=== PATIENT | male | born 1945 | race Caucasian/White ===

== ENCOUNTER 2018-06-28 13:54 | Observation (INO) | payer MEDICARE, BC ==
[2018-06-28 14:12] LABS: #Basophils 0.1 thou/uL (0.0-0.2); #Eosinphils 0.1 thou/uL (0.0-0.7); #Lymphocytes 1.4 thou/uL (1.20-3.40); #Monocytes 0.3 thou/uL (0.11-0.59); #Neutrophils 3.2 thou/uL (1.40-6.50); %Basophils 1.1 % (0.0-1.0); Hemoglobin 13.7 g/dL (14.0-18.0); Mean Corpuscular HGB CONC 33.5 g/dL (32.0-36.0); Mean Corpuscular Hemoglobin 34.4 pg (27.0-31.0); Platelet Count 159 thou/uL (130-400); RBC Distribution Width 11.2 % (11.5-14.5); Red Blood Cell (RBC) Count 3.98 mill/uL (4.70-6.10)
[2018-06-28] MEDS ORDERED: ISOVUE-370 76%-LOCM 1 ML ONE (14:13)
[2018-06-28 14:28] LABS: ALT (SGPT) 61 U/L (8-55); AST (SGOT) 69 U/L (5-34); Albumin 4.3 g/dL (3.4-4.8); Alkaline Phosphatase 75 U/L (40-150); Anion Gap 15 mmol/L (10-20); BUN (Urea Nitrogen) 22 mg/dL (8.4-25.7); Bilirubin, Total 1.3 mg/dL (0.2-1.2); CK (CPK) 110 U/L (30-200); Calc. Creatinine Clearance 0 mL/min (70-130); Calcium 9.8 mg/dL (7.8-10.44); Carbon Dioxide 21 mmol/L (23-31); Chloride 109 mmol/L (98-107); Estimated GFR-MDRD 64; Globulin 2.2 g/dL (2.4-3.5); Glucose 126 mg/dL (83-110); Lipase 21 U/L (8-78); Protein, Total 6.5 g/dL (5.8-8.1); Sodium 141 mmol/L (136-145)
--- NOTE | 2018-06-28 14:50 | RAD ---
PORTABLE CHEST: DATE: 06/28/2018. PROVIDED CLINICAL HISTORY: Chest pain and shortness of breath. FINDINGS: Comparison 09/11/2016. Cardiac and mediastinal silhouette is within normal limits. Median sternotomy changes are seen. No focal consolidation, pleural fluid, or pneumothorax apparent. IMPRESSION: No evidence for an acute cardiopulmonary process. POS: [facility]
--- NOTE | 2018-06-28 15:24 | CT ---
CT PULMONARY ANGIOGRAM WITH IV CONTRAST AND 3D MIP RECONSTRUCTIONS: DATE: 06/28/2018. PROVIDED CLINICAL HISTORY: Chest pain. FINDINGS: There is no evidence for central or segmental pulmonary embolus. Vascular calcification is demonstra amber. Postoperative changes of CABG are demonstrated. The heart, pericardium, and great vessels demo nstrate an otherwise unremarkable CT angiographic appearance. Bones are free of significant opacity. There is no evidence for pleural fluid or pneumothorax. The airway appears patent and of normal caliber. There is no evidence for thoracic lymph node enlargemen t. Diffuse fatty infiltration of the liver changes are seen. Visualized portions of the upper abdomen a ppear otherwise unremarkable. The osseous structures demonstrate no concerning osteoblastic or osteo lytic lesions. IMPRESSION: No evidence for central or segmental pulmonary embolus. POS: [facility]
[2018-06-28] MEDS ORDERED: Sodium Chloride 0.9% 1,000 ML IV SCH (16:00)
[2018-06-28] MEDS ORDERED: Ondansetron ODT 4 MG TAB SL PRN (16:00)
[2018-06-28] MEDS ORDERED: Ondansetron PF 4 MG/2 ML Vial IVP PRN (16:00)
[2018-06-28 17:34] LABS: Troponin I Less than 0.010 ng/mL (< 0.028)
[2018-06-28 18:12] VITALS: BMI 29.0
[2018-06-28] MEDS ORDERED: Aspirin 325 MG TAB PO SCH (18:30)
[2018-06-28] MEDS ORDERED: Acetaminophen 325 MG TAB PO PRN (18:48)
[2018-06-28] MEDS ORDERED: Lorazepam 2 MG/ML VIAL SLOW IVP PRN ×2 (19:07→19:13)
[2018-06-28] MEDS ORDERED: Diazepam 10 MG/2 ML SYRINGE IVP SCH (19:15)
[2018-06-28] MEDS ORDERED: Diazepam 5 MG TAB PO SCH ×2 (19:30→23:59)
--- NOTE | 2018-06-28 19:59 | PDOC.EVN ---
Event Note - Event Note Event Note: Patient discussed with JESSICA Perez: 72 y/o male with extensive coronary artery disease and hx of CABG and stent placement followed by Dr. Cantu, HTN, dyslipidemia, BPH, and alcohol abuse who presents to the ER with c/o palpitations. Pt reports for a few weeks waking up at night with palpitations, shortness of breath and tightness around 2 or 3 am. He generally gets up and walks around, The same sx will occur intermittently during the day both at rest and with exertion. Today the sx were different - felt lightheaded and they didnt respond to ntg x 2. \ PMH/PSH/MEDS reviewed Social hx - significant for 750 ml vodka per day. Pt doesnt go a day without alcohol, thinks he may get restless if delayed in consuming alcohol. Denies any hx of withdrawal in the hospital VS: Gen - awake, alert, responsive in NAD HEENT - pupils equal and round Lungs - ctab Heart - nl s1/s2 without audible murmurs Abd - soft, obese, nt, no palpable abnormalities Ext - no pitting edema Neuro - bilateral hand tremor Labs reviewed - elevated lft's, macrocytic anemia, mildly elevated glucose, and hyperchloremic/metabolic acidosis. Trop x 2 neg CXR - neg CT-A neg ECG - sinus tachy, no st changes Imp: 1. Unstable angina in pt with known CAD with hx of CABG and stent placement 2. Alcohol abuse at high risk of withdrawal given the daily consumption amount 3. Macrocytic anemia c/w above 4. Abnormal liver function tests c/w above Plan: 1. monitor on tele, cardiology consult due to significant sx, and echo ordered 2. For alcohol abuse and to lower the risk of alcohol withdrawal - schedule Valium. Start with loading dose of 10 mg and schedule 5 mg q6h, monitor with ASE protocol and use IV ativan prn. Pt may require significant amounts of benzo and/or transfer to ICU for other interventions/management. 3. Start replacement of vitamins including folic acid and magnesium 4. Check alcohol levels now 5. I reviewed my concerns with patient and the approach we are taking for both his heart and potential for alcohol withdrawal. He and his demonstrate understanding and agree. Pt is at significant risk of decompensation due to age , comorbidities and current clinical picture.
[2018-06-28 20:31] LABS: PTT 29.6 SEC (22.9-36.1); Prothrombin Time 13.4 SEC (12.0-14.7)
[2018-06-28] MEDS ORDERED: PROVENTIL INHALER 6.7 G (200 INHALATIONS) INH PRN (20:31)
[2018-06-28] MEDS ORDERED: Nitroglycerin 0.4 MG TAB (25 Tab Bottle) SL PRN (20:31)
[2018-06-28 20:39] LABS: Alcohol Less than 10 mg/dL (Less than 10); Magnesium 1.6 mg/dL (1.6-2.6)
[2018-06-28 20:45] LABS: Troponin I Less than 0.010 ng/mL (< 0.028)
[2018-06-28] MEDS ORDERED: Simvastatin 40 MG TAB PO SCH (21:00)
[2018-06-28] MEDS ORDERED: Famotidine/PF 20 mg/2ml Vial SLOW IVP SCH (21:00)
[2018-06-28] MEDS ORDERED: Tamsulosin HCl 0.4 MG CAP PO SCH (21:00)
[2018-06-28] MEDS ORDERED: Famotidine 20 MG TAB PO SCH (21:00)
[2018-06-28] MEDS ORDERED: Non-Formulary Item 1 EACH (Ezetimibe/Simvastatin [Vytorin] 1 TABLET) PO SCH (21:00)
[2018-06-28] MEDS ORDERED: Ezetimibe 10 MG TAB PO SCH (21:00)
[2018-06-28] MEDS: Carvedilol 6.25 MG TAB PO SCH (21:23)
[2018-06-28] MEDS: Ramipril 5 MG CAP PO SCH (21:23)
--- NOTE | 2018-06-28 22:56 | HP ---
PRIMARY CARE PHYSICIAN: Brian Galloway MD CHIEF COMPLAINT: Chest discomfort and palpitations. HISTORY OF PRESENT ILLNESS: Mr. Flores is a 72-year-old man with a background history of alcohol abuse, hypertension, CAD, and hyperlipidemia. Due to a presyncopal episode at approximately 11:00 a.m. this morning, the patient was standing and suddenly saw black, and felt as if he was going to faint. Denies having any associated nausea, vomiting, or headache at that time. He reports having this sensation of his heart pounding hard in his chest, but denies any chest pain. Over the last 2 to 3 weeks, he describes experiencing moments of chest discomfort and at times palpitations. This seems to be exacerbated by exertion, but it is noticeable at night as well when he is lying down and resting. He denies having any recent cough. Has not had any fevers, chills, or sweats. However, his states he did complain of feeling clammy earlier today. He describes experiencing an episode of burning on the skin of his face, which he states felt like "someone rubbed jalapeno around his face." He states that this briefly passed and occurred while here in the ER. The patient is known to Dr. Cantu. He has had a previous CABG. In October 2014, he underwent a catheterization after being admitted for an NSTEMI. This was done by Dr. Peoples. He underwent PCI to the right coronary artery with a drug-eluting stent to the mid RCA as well as a stent to the proximal RCA. In September 2016, he underwent a stress test, which showed normal myocardial perfusion without evidence of ischemia and normal LVEF calculated at 65%. In the ED, the patient has undergone laboratory studies including troponins, which thus far have been negative. We are waiting the third troponin. He also has undergone imaging including a CT angiogram of the chest, which showed no evidence of central or segmental pulmonary embolus. He had a chest x-ray done, which was also unremarkable. Of note, the patient admits to drinking heavily, approximately 750 mL of vodka daily. He denies any history of withdrawal seizures. REVIEW OF SYSTEMS: The patient denies having any recent fevers. Has not had any recent upper respiratory infections. Has not experienced any headaches. Denies having any nausea or vomiting. Denies any abdominal pain or cramping. Has not experienced any changes with his bowels. He denies any urinary symptoms such as dysuria, hematuria, urgency, or frequency. All other review of systems are negative. ALLERGIES: NO KNOWN DRUG ALLERGIES. CURRENT MEDICATIONS: 1. Vytorin 10/80 mg. 2. Ramipril 10 mg twice daily. 3. Clopidogrel 75 mg p.o. daily. 4. Dexilant 60 mg p.o. Friday, Friday, and Friday. 5. Flomax 0.4 mg p.o. daily. 6. Coreg 6.25 mg p.o. twice daily. PAST MEDICAL HISTORY: 1. Hypertension. 2. Asthma. 3. Hyperlipidemia. 4. Previous NSTEMI. 5. Alcohol abuse. 6. BPH. PAST SURGICAL HISTORY: 1. Bilateral shoulder surgery. 2. Previous CABG x3. 3. Toe joint repair. 4. Hernia repair. 5. Septoplasty. 6. Cardiac stents x2, one to the mid RCA and one to the proximal RCA. SOCIAL HISTORY: The patient admits to excess alcohol intake. He drinks 750 mL of vodka daily. Denies smoking cigarettes, but does dip. He denies any illicit drug use. PHYSICAL EXAMINATION: GENERAL: The patient appears well developed, in no acute distress. VITAL SIGNS: Temperature 98.2, pulse 85, blood pressure 106/74, respirations 18, O2 saturation 95% on room air. HEENT: Normocephalic, atraumatic. Pupils are equal, round, and reactive to light. Sclerae are notable for slight icterus. Oropharynx is clear. NECK: Supple. LUNGS: Clear to auscultation bilaterally without any wheezes, rales, or rhonchi. CARDIAC: Regular rate and rhythm. ABDOMEN: Tense distention with no guarding or rigidity. No renal angle tenderness. Bowel sounds are present. EXTREMITIES: No edema, calf pain, or swelling. NEUROLOGIC: Alert and oriented x3. SKIN: Without rash or jaundice. DIAGNOSTIC STUDIES: EKG done in the ED showed sinus tachy with a heart rate of 115 and premature atrial complexes. LABORATORY DATA: White blood count 5.0, hemoglobin 13.7, hematocrit 40.8, platelets 159. D-dimer 0.70. Sodium 141, potassium 4.0, BUN 22, creatinine 1.12, GFR 64, calcium 9.8, glucose 126, total bilirubin 1.3, AST 69, ALT 61, alkaline phosphatase 75. CK 110, troponin negative x2. Third troponin pending. BNP 73.9. Albumin 4.3. Lipase 21. IMAGING DATA: As mentioned above in HPI. IMPRESSION AND PLAN: Mr. Flores is a 72-year-old man, who is being admitted for management of the following. 1. Chest pain/palpitations. Chest x-ray is negative and CT angiogram without evidence of pulmonary embolism. Two troponins done and negative. The patient will undergo a third troponin. It appears he may be experiencing unstable angina and given his comorbidities and previous cardiac procedures as well as myocardial infarction, he would benefit from Cardiology review. Consult has already been placed to Dr. Cantu, his bindery technician. At present, the patient is pain-free. We will continue his aspirin, Plavix, and statin. 2. Hyperbilirubinemia. It is likely associated with his alcohol excess. On the CT angiogram, he was noted to have diffuse fatty infiltration of the liver. He has tense abdominal distention on exam, but without any tenderness. We will obtain coags. We will obtain a liver ultrasound as well as check his direct bilirubin. We will continue to trend his liver function. 3. Alcohol abuse. JESSIKA protocol has been activated. We will also start diazepam with a loading dose of 10 mg p.o. and continue 5 mg p.o. every 6 hours. We have added Ativan p.r.n. Thiamine, multivitamin, and folic acid are ordered. We will check alcohol level and ammonia level. 4. Gastrointestinal prophylaxis. We will resume home medication. 5. Deep venous thrombosis prophylaxis with mechanical SCDs. 6. Full code status. His surrogate decision maker is his , Ashleigh Flores. They are interested in information regarding advanced directives, therefore consult has been placed to palliative care. 7. The patient's case and plan discussed with Dr. Arango. Job ID: [id number]
[2018-06-29] MEDS: Diazepam 5 MG TAB PO SCH ×3 (00:46→11:10)
[2018-06-29 05:46] LABS: #Eosinphils 0.1 thou/uL (0.0-0.7); #Lymphocytes 1.3 thou/uL (1.20-3.40); #Monocytes 0.4 thou/uL (0.11-0.59); %Eosinophils 2.9 % (0.0-10.0); %Lymphocytes 26.5 % (21.0-51.0); %Monocytes 8.8 % (0.0-10.0); %Neutrophils 60.8 % (42.0-75.0); Mean Corpuscular HGB CONC 31.6 g/dL (32.0-36.0); Mean Corpuscular Hemoglobin 33.1 pg (27.0-31.0); Platelet Count 150 thou/uL (130-400); RBC Distribution Width 11.4 % (11.5-14.5); Red Blood Cell (RBC) Count 3.94 mill/uL (4.70-6.10); White Blood Cell (WBC) Count 4.9 thou/uL (4.8-10.8)
[2018-06-29 05:57] LABS: Anion Gap 12 mmol/L (10-20); BUN (Urea Nitrogen) 25 mg/dL (8.4-25.7); Calc. Creatinine Clearance 110 mL/min (70-130); Calcium 9.4 mg/dL (7.8-10.44); Carbon Dioxide 25 mmol/L (23-31); Cardiac Risk 2.1 (Less than 4.5); Chloride 109 mmol/L (98-107); Cholesterol 160 mg/dl (< 200 Desired); Estimated GFR-MDRD 86; Glucose 102 mg/dL (83-110); HDL Cholesterol 78 mg/dL (>60 Neg Risk); LDL Cholesterol, Calculated 72 mg/dL; Potassium 4.5 mmol/L (3.5-5.1); Sodium 141 mmol/L (136-145); Triglycerides 49 mg/dL (Less than 150)
[2018-06-29] MEDS ORDERED: Mometasone/Formoterol 120 PUFF INHALER INH PRN (06:30)
--- NOTE | 2018-06-29 08:18 | ULT ---
COMPLETE ABDOMEN ULTRASOUND: INDICATIONS: Elevated LFTs with history of alcohol abuse. FINDINGS: There is increased echogenicity of the liver, suspicious for changes of fatty infiltration. The panc reas is largely obscured by overlying bowel gas. The mid to distal abdominal aorta is obscured by ov erlying bowel gas. The proximal abdominal aorta and IVC appear within normal limits. The gallbladder appears within normal limits. No sonographic Gray sign is reported. The common bi le duct measures approximately 4 mm but was not well seen. The spleen measures 9.6 cm. The right ki dney measures 13.2 cm, and the left measures 13.1 cm. There is a 3.6 cm cyst involving the inferior pole of the left kidney. No free fluid is evident. IMPRESSION: 1. Prominent fatty infiltration of the liver. 2. Left renal cyst. 3. Some limitation of exam, as above. POS: [facility]
[2018-06-29] MEDS: Carvedilol 6.25 MG TAB PO SCH (08:44)
[2018-06-29] MEDS: Ramipril 5 MG CAP PO SCH (08:44)
[2018-06-29] MEDS ORDERED: Multivitamin W/ Minerals 1 TAB PO SCH (09:00)
[2018-06-29] MEDS ORDERED: Clopidogrel Bisulfate 75 MG TAB PO SCH (09:00)
[2018-06-29] MEDS ORDERED: Folic Acid 1 MG TAB PO SCH (09:00)
[2018-06-29] MEDS ORDERED: Thiamine 100 MG TAB PO SCH (09:00)
[2018-06-29] MEDS ORDERED: Magnesium Oxide 400 MG TAB PO SCH (09:00)
[2018-06-29 11:34] VITALS: TEMP 97.7
[2018-06-29] MEDS ORDERED: Carvedilol 6.25 MG TAB PO SCH ×2 (11:45→21:00)
[2018-06-29 11:52] VITALS: BP 131/86
--- NOTE | 2018-06-29 13:21 | CON ---
DATE OF CONSULTATION: HISTORY OF PRESENT ILLNESS: The patient is a 72-year-old gentleman, who presents with recurrent palpitations and chest discomfort. The patient has a long history of coronary artery disease. He is status post coronary artery bypass surgery in 2002.He had a COWART placed to the LAD, radial graft to the first diagonal and a graft to the right coronary artery. The patient in 2014 suffered a non-Q-wave myocardial infarction. He underwent a cardiac catheterization,and was found to have an occluded right coronary artery graft. He underwent PTCA and stent placement to the [place] right coronary artery. He presented with atypical chest pain in September of 2006. He underwent a Cardiolite stress test revealed him to have normal left ventricular ejection fraction of 65% with no evidence of ischemia. The patient presents once again with recurrent palpitations and chest discomfort. He reports that he notices that he develops midsternal discomfort that can last up to an hour. This occurs with and without exertion. The patient came to the emergency room with severe discomfort and palpitations. He states that this can last up to an hour. PAST MEDICAL HISTORY: 1. Coronary artery disease. 2. Hypertension. 3. Dyslipidemia. 4. Ethanol abuse. PAST SURGICAL HISTORY: Coronary artery bypass surgery, shoulder surgery,hernia surgery, and toe surgery. SOCIAL HISTORY: He has a long history of alcohol abuse. Nonsmoker. MEDICATIONS ON ADMISSION: 1. Coreg 6.25 b.i.d. 2. Flomax 0.4 daily. 3. Plavix 75 daily. 4. Ramipril 10 daily. 5. Vytorin 10/80 daily. REVIEW OF SYSTEMS: Ten-point system otherwise unremarkable. PHYSICAL EXAMINATION: GENERAL: He is an obese gentleman, in no acute distress. VITAL SIGNS: Blood pressure 147/90. NECK: No jugular distention. LUNGS: Clear to auscultation. HEART: Regular rate and rhythm. Normal S1 and S2. ABDOMEN: Nondistended. EXTREMITIES: Showed no edema. VASCULAR: Radial pulses are 2+. LABORATORY DATA: Sodium 141, potassium 4.5, chloride 109, bicarbonate 25, BUN 25, creatinine 0.87, glucose was 102. Troponin was less than 0.01. White blood cell count was 4.9, hemoglobin 13.0, hematocrit 41.2, platelet 150. His BNP 73. He underwent a chest CT, which revealed him to have no evidence of pulmonary embolus. IMPRESSION: 1. Chest pain, possibly due to ischemic heart disease. 2. History of coronary artery bypass surgery. 3. History of percutaneous transluminal coronary angioplasty and stent placement. 4. Hypertension. 5. Dyslipidemia. 6. Ethanol abuse. This gentleman presented with chest discomfort and palpitations. His cardiac enzymes revealed no evidence of myocardial infarction. His electrocardiogram with chest pain showed no evidence of ischemia. I discussed the option of repeat stress testing versus cardiac catheterization. The patient declines to undergo further evaluation. He states that he would prefer that he wants to continue on medical therapy. I would recommend increasing the dose of his Coreg. We will schedule outpatient stress to make sure there is no evidence of progressive ischemic heart disease. The patient has been advised to return to the emergency room if he has further symptoms. Job ID: [id number] [facility] HEALTHStephenie
--- NOTE | 2018-06-29 23:25 | DIS ---
DATE OF ADMISSION: 06/28/2018 DATE OF DISCHARGE: 06/29/2018 ALLERGIES: NO KNOWN DRUG ALLERGIES. CHIEF COMPLAINT: Chest discomfort, palpitations, and near syncope. FINAL DIAGNOSES: 1. Chest pain, acute coronary syndrome ruled out, the patient refusing option of inpatient stress test versus inpatient catheterization offered by Dr. Cantu. 2. Alcohol abuse. 3. Elevated LFTs and bilirubin secondary to above. 4. History of coronary artery disease, status post bypass surgery, status post stents to the right coronary artery in 2014. 5. Fatty liver per liver ultrasound. 6. Hypertension. 7. Dyslipidemia. PROCEDURES PERFORMED: None. LABORATORY RESULTS: White blood cell count 4.9, hemoglobin 13, hematocrit 41.2, MCV 105, and platelet count 150. PT 13.4, INR 1.0, and APTT 29.6. Sodium 141, potassium 4.5, chloride 109, carbon dioxide 25, anion gap 12, BUN 25, creatinine 0.87, GFR 86, glucose 102, and calcium 9.4. Total bilirubin 1.3, direct bilirubin 0.4, AST 69, ALT 61, alkaline phosphatase 75. Troponin negative x3. Triglycerides 49, cholesterol 160, LDL 72. HDL 78. TSH 1.1125. IMAGING RESULTS: 1. Chest x-ray, no evidence for an acute cardiopulmonary process. 2. Chest and thorax CTA, no evidence for central or segmental pulmonary embolism. 3. Abdominal ultrasound showed prominent fatty infiltration of the liver, left renal cyst. No sonographic Gray sign reported. CONSULTATION: Dr. Cantu of Cardiology. HOSPITAL COURSE: The patient is a 72-year-old male with past medical history significant for alcohol abuse with a current 750 mL consumption of vodka per day; known coronary artery disease, status post bypass, status post stents to the RCA in 2014; hypertension, and hyperlipidemia, who presented to the hospital with complaints of a presyncopal episode that occurred around 11:00 a.m. yesterday morning. The patient felt as if he saw black and felt as if he was going to faint, but denies any keyonna syncope, nausea, vomiting, or headache. He reported that time having a sensation of pounding in his chest, but denied any chest pain at that time. The patient has reported a 2 to 3-week history of chest discomfort along with palpitations, which seems to be exacerbated by exertion. He has noticed this sensation while lying down at rest as well. On arrival, the patient's EKG was stable and showed no dynamic ST or T-wave changes. History of serial troponin has been negative x3. Imaging results as above, CTA showed no evidence of pulmonary embolism. He was treated for alcohol withdrawal prophylactically with benzodiazepines; however, the patient had no signs of acute alcohol withdrawal symptoms or DTs. He was seen in consultation with Dr. Cantu, who did offer him both inpatient stress test versus inpatient left heart catheterization, both of which the patient declined. At the time of my interview, the patient states that he has no chest pain. No shortness of breath. He denies any nausea or vomiting. Per Dr. Cantu, he will be set up for an outpatient nuclear stress test at their office. PHYSICAL EXAMINATION: VITAL SIGNS: Blood pressure 131/86, temperature is 97.7, pulse is 63, and O2 saturation is 96% on room air. GENERAL: Awake, alert, and oriented, in no acute distress. HEENT: Atraumatic, normocephalic. Eye movement intact. NECK: Supple. No lymphadenopathy. No carotid bruits. No JVD. RESPIRATORY: Regular respiratory rate and pattern, overall clear to auscultation bilaterally. No rhonchi or wheezes noted. CV: S1, S2. Regular rate and rhythm. No appreciable murmurs, rubs, or gallops. GI: Soft, nontender, normal bowel sounds. PERIPHERAL VASCULAR: No lower extremity pitting edema, +2 DP pulses bilaterally. MUSCULOSKELETAL: No joint effusion or swelling. NEUROLOGIC: Awake, alert, and oriented x3. Cranial nerves 2 through 12 grossly intact. No focal deficits. SKIN: Normal and dry. No skin discoloration. CONDITION AT DISCHARGE: Stable. DISCHARGE MEDICATIONS: 1. Dexilant 60 mg capsule one p.o. as directed. 2. Zetia/simvastatin 10/80 mg tablet one tablet p.o. at bedtime. 3. Advair 1 inhalation b.i.d. p.r.n. 4. Ibuprofen 200 mg capsule 2 to 4 tablets p.o. p.r.n. pain. 5. Nitroglycerin 0.4 mg tablet one tablet sublingual q.5 minutes p.r.n. chest pain. 6. Ramipril 10 mg capsule one tablet p.o. b.i.d. 7. Tamsulosin 0.4 mg capsule one p.o. at bedtime. 8. Clopidogrel 75 mg tablet one tablet p.o. daily. 9. Please note that the patient's carvedilol was increased from 6.25 to 12.5 mg p.o. b.i.d. per Dr. Cantu for intermittent tachycardia. New discharge medication will be Valium 5 mg tablet one tablet p.o. q.6 hours p.r.n. DISCHARGE DISPOSITION: Home. PLAN: As mentioned, the patient has been scheduled for an outpatient nuclear stress test. He will continue his home medications. I have counseled him extensively on the health repercussions associated with alcoholism. The patient at this time has no interest in counseling or rehab. He will be discharged home. All care has been discussed with himself and his . All questions were answered according to the patient's satisfaction. The case was discussed with Dr. Thacker, who agrees with discharge planning as above. Job ID: [id number]
--- NOTE | 2018-07-04 20:38 | EKG ---
Test Reason : Blood Pressure : / mmHG Vent. Rate : 115 BPM Atrial Rate : 115 BPM P-R Int : 158 ms QRS Dur : 082 ms QT Int : 330 ms P-R-T Axes : 027 -20 055 degrees QTc Int : 456 ms Sinus tachycardia with Premature atrial complexes Minimal voltage criteria for LVH, may be normal variant Nonspecific ST abnormality Abnormal ECG Confirmed by ETHEL GALINDO, MARCIA ([id number]), electronic news gathering editor JEN BROCK ([id number]) on 07/04/2018 8:37:47 PM Referred By: Confirmed By:MARCIA DAVENPORT MD
== END 2018-06-29 13:35 | disposition home or self-care (01) ==
LOC: ERS 13:54 → 2SW 18:01
PROVIDERS: ADMIT Internal Medicine; ATTEND Internal Medicine
DX: R07.89 Other chest pain (principal); R55 Syncope and collapse; F10.10 Alcohol abuse, uncomplicated; I25.10 Atherosclerotic heart disease of native coronary artery without angina pectoris; K76.0 Fatty (change of) liver, not elsewhere classified; I10 Essential (primary) hypertension; E78.5 Hyperlipidemia, unspecified; I25.2 Old myocardial infarction; N40.0 Benign prostatic hyperplasia without lower urinary tract symptoms; J45.909 Unspecified asthma, uncomplicated; F17.290 Nicotine dependence, other tobacco product, uncomplicated; Z79.02 Long term (current) use of antithrombotics/antiplatelets; Z79.899 Other long term (current) drug therapy; Z95.1 Presence of aortocoronary bypass graft; Z95.5 Presence of coronary angioplasty implant and graft
CPT/HCPCS: 71045; 71275; 76700; 80048; 80061; 80307; 82140; 82248; 82550; 83690; 83735; 83880; 84484 ×2; 85025; 85379; 85610; 85730; 93005; 93306; 96365; 99285; G0378 ×2; 36415; 80053; 84443; J3475; J7050; Q9966

== ENCOUNTER 2018-08-08 15:08 | Observation (INO) | payer MEDICARE, BC ==
[2018-08-08 16:04] LABS: #Eosinphils 0.1 thou/uL (0.0-0.7); #Lymphocytes 0.8 thou/uL (1.20-3.40); #Monocytes 0.4 thou/uL (0.11-0.59); #Neutrophils 7.5 thou/uL (1.40-6.50); %Basophils 0.2 % (0.0-1.0); %Eosinophils 0.9 % (0.0-10.0); %Lymphocytes 9.4 % (21.0-51.0); %Monocytes 4.8 % (0.0-10.0); %Neutrophils 84.7 % (42.0-75.0); Hemoglobin 12.6 g/dL (14.0-18.0); Mean Corpuscular HGB CONC 33.1 g/dL (32.0-36.0); Mean Corpuscular Hemoglobin 33.9 pg (27.0-31.0); Mean Platelet Volume 7.9 fL (7.4-10.4); Platelet Count 159 thou/uL (130-400); RBC Distribution Width 12.1 % (11.5-14.5); Red Blood Cell (RBC) Count 3.73 mill/uL (4.70-6.10); White Blood Cell (WBC) Count 8.9 thou/uL (4.8-10.8)
--- NOTE | 2018-08-08 16:16 | RAD ---
AP view chest. HISTORY: Chest pain. AP view chest obtained on 08/08/2018. Comparison made to previous exam from 06/28/2018 AP view chest demonstrates sternotomy wires seen. The lungs are well aerated. No evidence of active i ntrathoracic disease noted. No evidence of effusions, pneumonia or pneumothorax seen IMPRESSION: unremarkable AP view chest.
[2018-08-08 16:25] LABS: ALT (SGPT) 57 U/L (8-55); AST (SGOT) 91 U/L (5-34); Albumin 4.3 g/dL (3.4-4.8); Alkaline Phosphatase 87 U/L (40-150); Anion Gap 16 mmol/L (10-20); BUN (Urea Nitrogen) 19 mg/dL (8.4-25.7); Bilirubin, Total 1.2 mg/dL (0.2-1.2); CK (CPK) 120 U/L (30-200); Calc. Creatinine Clearance 0 mL/min (70-130); Calcium 8.9 mg/dL (7.8-10.44); Carbon Dioxide 23 mmol/L (23-31); Chloride 109 mmol/L (98-107); Estimated GFR-MDRD 63; Globulin 2.1 g/dL (2.4-3.5); Glucose 131 mg/dL (83-110); Lipase 16 U/L (8-78); Potassium 3.6 mmol/L (3.5-5.1); Protein, Total 6.4 g/dL (5.8-8.1); Sodium 144 mmol/L (136-145)
[2018-08-08] MEDS ORDERED: Aspirin Chewable 81 MG TAB ONE (16:37)
[2018-08-08] MEDS ORDERED: Acetaminophen 325 MG TAB PO PRN (18:35)
[2018-08-08 19:13] VITALS: BMI 29.7
[2018-08-08 21:11] LABS: Cardiac Risk 2.1 (Less than 4.5)
[2018-08-08] MEDS ORDERED: Ondansetron ODT 4 MG TAB PO PRN (21:52)
[2018-08-08] MEDS ORDERED: Ondansetron PF 4 MG/2 ML Vial IVP PRN (21:52)
[2018-08-08] MEDS ORDERED: Diazepam 5 MG TAB PO SCH (22:00)
[2018-08-08] MEDS ORDERED: Carvedilol 6.25 MG TAB PO SCH (22:00)
[2018-08-08] MEDS ORDERED: Tamsulosin HCl 0.4 MG CAP PO SCH (22:00)
[2018-08-08] MEDS ORDERED: Ramipril 5 MG CAP PO SCH (22:00)
[2018-08-09 05:36] LABS: #Eosinphils 0.1 thou/uL (0.0-0.7); #Lymphocytes 1.2 thou/uL (1.20-3.40); #Monocytes 0.5 thou/uL (0.11-0.59); #Neutrophils 4.7 thou/uL (1.40-6.50); %Basophils 0.4 % (0.0-1.0); %Lymphocytes 17.7 % (21.0-51.0); %Monocytes 8.2 % (0.0-10.0); %Neutrophils 71.7 % (42.0-75.0); Hemoglobin 12.4 g/dL (14.0-18.0); Mean Corpuscular HGB CONC 33.9 g/dL (32.0-36.0); Mean Platelet Volume 8.4 fL (7.4-10.4); Platelet Count 147 thou/uL (130-400); RBC Distribution Width 12.3 % (11.5-14.5); Red Blood Cell (RBC) Count 3.55 mill/uL (4.70-6.10); White Blood Cell (WBC) Count 6.6 thou/uL (4.8-10.8)
[2018-08-09] MEDS: PROVENTIL INHALER 6.7 G (200 INHALATIONS) INH PRN ×2 (05:37→22:55)
--- NOTE | 2018-08-09 05:43 | HP ---
CHIEF COMPLAINT: Chest pain. HISTORY OF PRESENT ILLNESS: Mr. Flores is a 73-year-old man presenting with complaints of central chest pressure. The patient states it lasted approximately an hour and a half, and started sometime in the afternoon and resolved on its own. He has had no recurrent chest pain ever since. He denies any associated nausea or vomiting. Denies any diaphoresis. He states he has felt back to his normal self with no further complaints. 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 Cantu. The patient reports having 2-3 loose stools per day. No blood in the stools and states it is not watery. No associated abdominal pain or cramping. The patient known to have history of coronary artery disease and previously recommended catheterization, however, the patient had declined. He last underwent an echo on June 28, 2018, and was noted to have an EF of 50% to 55% with impaired relaxation compatible with diastolic dysfunction. Aortic valve leaflets were somewhat thickened. Mild aortic regurgitation noted as well as mild mitral regurgitation and mild tricuspid regurgitation. Of note, the patient also known to have a history of alcohol excess. He drinks approximately 750 mL bottle of liquor daily. Denies any history of alcohol withdrawal seizures, but does have tremors at baseline even when he drinks. REVIEW OF SYSTEMS: All other review of systems apart from those mentioned above in HPI are negative. The patient denies having any shortness of breath, cough, or hemoptysis. No lower leg swelling or calf tenderness. No abdominal pain. PAST MEDICAL HISTORY: 1. Hypertension. 2. Asthma. 3. Hyperlipidemia. 4. Previous NSTEMI. 5. Alcohol abuse. 6. BPH. 7. Heart failure. PAST SURGICAL HISTORY: 1. Bilateral shoulder surgery. 2. Previous CABG x3. 3. Toe joint repair. 4. Hernia repair. 5. Septoplasty. 6. Cardiac stents x2. SOCIAL HISTORY: The patient drinks 750 mL of vodka daily. No tobacco use and no illicit drug use. PHYSICAL EXAMINATION: GENERAL: The patient appears well developed, well nourished, is in no acute distress. VITAL SIGNS: Temperature 98.3, pulse 82, respirations 21, O2 saturation 95% on room air, blood pressure 151/85. HEENT: Normocephalic and atraumatic. Pupils are equal, round, and reactive to light. No nystagmus. Sclerae without icterus. Oropharynx is clear. NECK: Supple without lymphadenopathy. LUNGS: Clear to auscultation bilaterally without wheezes, rales, or rhonchi. CARDIAC: Regular rate and rhythm. No chest wall tenderness. ABDOMEN: Obese, distended, but not firm, remains soft. No tenderness. No guarding or rigidity. No renal angle tenderness. EXTREMITIES: No lower leg edema or swelling. NEUROLOGIC: Alert and oriented x3. He does have a bit of a tremor. SKIN: He is flushed in the face and states this is chronic. Skin is warm and dry. LABORATORY DATA: White blood count 8.9, hemoglobin 12.6, hematocrit 38.2, platelets 159. Sodium 144, potassium 3.6, chloride 109, carbon dioxide 23, anion gap 16, BUN 19, creatinine 1.13, GFR 63, glucose 131, calcium 8.9. Total bilirubin 1.2, AST 91, ALT 57, alkaline phosphatase 87. CK 120. Troponin negative x2. BNP 57.7. Albumin 4.3, globulin 2.1. IMAGING DATA: Chest x-ray, 08/08/2018. Unremarkable. IMPRESSION AND PLAN: Mr. Flores is a 73-year-old man with; 1. Known history of coronary artery disease as well as alcohol excess. He presents due to an episode of chest pain described as pressure, which he is unable to quantify in terms of severity, lasting approximately an hour and a half. The patient states it resolved on its own and has had no recurrent pain since then. No associated shortness of breath, dizziness, lightheadedness, nausea, or vomiting. The patient was previously advised a catheterization, which apparently he declined. He last underwent catheterization in October 2014, at which time, he had severe 2-vessel coronary artery disease. He had presented in June 2018, with chest pain and at that time, Dr. Cantu had advised repeat stress testing versus cardiac catheterization, and he declined both. Cardiology consult has been placed. So far, troponins remain negative x2. Awaiting third troponin. Chest x-ray unremarkable. We will continue to monitor. 2. Alcohol excess. Initiate JESSIKA protocol. Diazepam 10 mg p.o. x1 given. 3. Hypertension. We will resume home medications and monitor blood pressure. 4. Gastrointestinal prophylaxis. 5. Deep venous thrombosis prophylaxis with mechanical SCDs. 6. Full code status. His surrogate decision maker is his , Ashleigh Flores. The patient's case to be discussed with attending for further recommendations. Job ID: [id number]
[2018-08-09 05:53] LABS: Anion Gap 14 mmol/L (10-20); BUN (Urea Nitrogen) 18 mg/dL (8.4-25.7); Calc. Creatinine Clearance 128 mL/min (70-130); Calcium 8.7 mg/dL (7.8-10.44); Carbon Dioxide 22 mmol/L (23-31); Chloride 112 mmol/L (98-107); Estimated GFR-MDRD Greater than 90; Glucose 97 mg/dL (83-110); Potassium 3.6 mmol/L (3.5-5.1); Sodium 144 mmol/L (136-145)
[2018-08-09] MEDS: Aspirin 325 MG TAB PO SCH (08:58)
[2018-08-09] MEDS: Diazepam 5 MG TAB PO PRN ×2 (08:58→21:32)
[2018-08-09] MEDS: Ramipril 5 MG CAP PO SCH ×2 (08:59→20:53)
[2018-08-09] MEDS: Clopidogrel Bisulfate 75 MG TAB PO SCH (08:59)
[2018-08-09] MEDS: Carvedilol 6.25 MG TAB PO SCH ×2 (08:59→20:55)
[2018-08-09] MEDS: Famotidine 20 MG TAB PO SCH ×2 (09:00→20:56)
[2018-08-09] MEDS ORDERED: Famotidine/PF 20 mg/2ml Vial SLOW IVP SCH (09:00)
[2018-08-09] MEDS ORDERED: Communication Order-Pharmacy FS SCH (10:00)
--- NOTE | 2018-08-09 11:37 | PDOC.PN ---
- Subjective Encounter Start Date: 08/09/18 Encounter Start Time: 10:50 Subjective: no current chest pain or sob or palp - Objective Resuscitation Status - Order Detail: 08/08/18 21:52 Resuscitation Status Routine Co-Sign Provider: Resuscitation Status: FULL: Full Resuscitation MAR Reviewed: Yes Vital Signs & Weight: Vital Signs (12 hours) Temp Pulse Resp BP BP Pulse Ox 08/09/18 08:59 145/91 H 08/09/18 07:55 97.9 F 69 16 145/91 H 94 L 08/09/18 05:37 71 18 95 08/09/18 02:59 98.3 F 78 22 H 151/86 H 96 08/09/18 02:58 151/86 H Weight Weight 231 lb 1.6 oz I&O: 08/08/18 08/09/18 08/10/18 06:59 06:59 06:59 Intake Total 600 Balance 600 Result Diagrams: 08/09/18 04:44 08/09/18 04:44 Additional Labs: Accuchecks 08/08/18 20:39 POC Glucose 111 H Phys Exam - Physical Examination HEENT: PERRLA, moist MMs Neck: no JVD, supple Respiratory: no wheezing, no rales Cardiovascular: RRR, no significant murmur Gastrointestinal: soft, non-tender, positive bowel sounds Musculoskeletal: no edema, pulses present Neurological: non-focal, moves all 4 limbs Psychiatric: normal affect, A&O x 3 Dx/Plan (1) Chest pain Code(s): R07.9 - CHEST PAIN, UNSPECIFIED Status: Acute Qualifiers: Chest pain type: unspecified Qualified Code(s): R07.9 - Chest pain, unspecified (2) CAD (coronary artery disease) Code(s): I25.10 - ATHSCL HEART DISEASE OF [place] CORONARY ARTERY W/O ANG PCTRS Status: Chronic Qualifiers: Coronary Disease-Associated Artery/Lesion type: bypass graft [place] vs. transplanted heart: [place] heart Associated angina: with stable angina Qualified Code(s): I25.708 - Atherosclerosis of coronary artery bypass graft(s) , unspecified, with other forms of angina pectoris (3) HTN (hypertension) Code(s): I10 - ESSENTIAL (PRIMARY) HYPERTENSION Status: Chronic Qualifiers: Hypertension type: essential hypertension Qualified Code(s): I10 - Essential (primary) hypertension (4) Dyslipidemia Code(s): E78.5 - HYPERLIPIDEMIA, UNSPECIFIED Status: Chronic (5) Alcohol abuse Code(s): F10.10 - ALCOHOL ABUSE, UNCOMPLICATED Status: Chronic (6) BPH (benign prostatic hyperplasia) Code(s): N40.0 - BENIGN PROSTATIC HYPERPLASIA WITHOUT LOWER URINRY TRACT SYMP Status: Chronic Qualifiers: Lower urinary tract symptom presence: unspecified whether lower urinary tract symptoms present Qualified Code(s): N40.0 - Benign prostatic hyperplasia without lower urinary tract symptoms - Plan for cardiac cath in am -: continue asp, plavix, coreg, ramipril and flomax -: librium prn for alcohol withdrawal -: trop x3 -ve, ldl is 62 -: has elevated lft's sec to alcohol use with ast>alt * . Review of Systems - Medications/Allergies Allergies/Adverse Reactions: Allergies Allergy/AdvReac Type Severity Reaction Status Date / Time No Known Allergies Allergy Verified 08/08/18 19:56 Medications: Current Medications Albuterol Sulfate (Proventil Hfa) 2 puff INH Q4H PRN PRN Reason: SOB &/or Wheezing Last Admin: 08/09/18 05:37 Dose: 2 puff Aspirin (Aspirin) 325 mg PO DAILY [facility] Stop: 08/14/18 21:00 Last Admin: 08/09/18 08:58 Dose: 325 mg Carvedilol (Coreg) 12.5 mg PO BID [facility] Last Admin: 08/09/18 08:59 Dose: 12.5 mg Clopidogrel Bisulfate (Plavix) 75 mg PO DAILY [facility] Last Admin: 08/09/18 08:59 Dose: 75 mg Diazepam (Valium) 5 mg PO Q6H PRN PRN Reason: Anxiety Last Admin: 08/09/18 08:58 Dose: 5 mg Famotidine (Pepcid) 20 mg PO BID [facility] Last Admin: 08/09/18 09:00 Dose: 20 mg Miscellaneous Information (Communication Order-Pharmacy) 0 each FS ONE [facility] Stop: 08/10/18 21:00 Ondansetron HCl (Zofran Odt) 4 mg PO Q6H PRN PRN Reason: Nausea/Vomiting Ondansetron HCl (Zofran) 4 mg IVP Q6H PRN PRN Reason: Nausea/Vomiting Ramipril (Altace) 10 mg PO BID [facility] Last Admin: 08/09/18 08:59 Dose: 10 mg Sodium Chloride (Flush - Normal Saline) 10 ml IVF Q12HR BULL Sodium Chloride (Flush - Normal Saline) 10 ml IVF PRN PRN PRN Reason: Saline Flush Tamsulosin HCl (Flomax) 0.4 mg PO HS BULL
--- NOTE | 2018-08-09 16:43 | CON ---
DATE OF CONSULTATION: 08/09/2018 INDICATION FOR CONSULTATION: A 73-year-old patient with a history of known coronary artery disease, status post bypass surgery, status post angioplasty and stent placement to the right coronary artery in 2015. Bypass surgery was in 2003. He presents with chest pain, nausea, diaphoresis, and diarrhea. He was admitted. Enzymes are negative. We were asked to see him due to the chest discomfort and history of coronary artery disease. HISTORY OF PRESENT ILLNESS: This is a very pleasant 73-year-old gentleman, who has a history of coronary artery disease, underwent bypass surgery in 2003 with 3-vessel CABG with COWART to the left anterior descending artery, saphenous vein graft to diagonal branch and saphenous vein graft to the right coronary artery. He presented again with a non-ST segment elevation myocardial infarction in 2014 and underwent angioplasty and stent placement to the [place] right coronary artery. The saphenous vein graft had occluded. This is in 2014. At the time of the cardiac catheterization of the left anterior descending artery, the [place] vessels are 100% occluded. The right coronary artery had a 60% occlusion proximally and 50% mid stenosis. The pack of the saphenous vein graft was patent to the diagonal branch and also this appears to be a radial branch and also very patent saphenous vein graft to the left anterior descending artery with a COWART. The left circumflex has not been involved and as far as I can tell, has not had any significant stenosis or disease, has not been intervened upon. He did quite well after the stent placement. He had stent placement by Dr. Peopels. He had a 3.0 x 32 mm stent placed in the mid right coronary artery and a 3.5 x 16 mm stent placed in the proximal right coronary artery with good results. He had been doing quite well. He was seen in the office recently for followup and underwent a myocardial perfusion study, which showed no evidence of ischemia. This was performed in July of this year. His ejection fraction was 62%. He also had a recent echocardiogram, which showed a normal ejection fraction estimated at 50% to 55% by echocardiogram. This was performed in June of this year. He had the aortic valve leaflets were somewhat thickened, but had mild aortic, mitral, and tricuspid valve regurgitation. He also was noted to have some diastolic dysfunction. Otherwise, he has been doing relatively well. He was out in his [place] in [place] yesterday when he noticed he started to get some chest discomfort. He became diaphoretic. He had been having some problems with diarrhea and then decided to come back to [place]. On the way back in, he was feeling well, but then decided since he was not knowing when he might have further diarrhea or chest discomfort, he presented to the emergency room and was admitted to the hospital for further evaluation. Fortunately, his cardiac enzymes have remained negative. During our discussion, he did tell me that he has been having problems with constipation and diarrhea for quite some time. He has been on Dexilant. He takes this only 2 to 3 times a week. He did notice that he had a monitor placed about four weeks ago from the office and it was noted he was having some intermittent atrial fibrillation. He was then started on Multaq. He noticed that the diarrhea became worse after starting the Multaq and he stopped taking the medication about 2 days ago. He takes the Dexilant only on a p.r.n. basis 2 or 3 times a week for gastroesophageal reflux. He also stated that he has been having some blood in his stools, which is not an unusual finding and he has also has a history of diverticulosis and this is either he may be having some bleeding from the diverticulosis or diverticulitis. If he has flare ups or this may be from hemorrhoids due to his constipation. He says that most of the time he does notice blood in the stools and in the water recently, even if he is not having constipation with diarrhea. He continues to have this and he may be having some diverticulitis. He has not had a recent colonoscopy performed. He did take nitroglycerin, but did not have any resolution of the discomfort. PAST MEDICAL HISTORY: Significant for coronary artery disease, hypertension, dyslipidemia, and a history of COPD. He has smoked in the past, but stopped about 40 years ago. He has had surgical procedures and bypass surgery. He has also had angioplasty and stent placement as noted above to the right coronary artery. He has had rotator cuff surgery repair. FAMILY HISTORY: Positive for coronary artery disease. His father had coronary artery disease. ALLERGIES: NONE. MEDICATIONS: His medications prior to admission included; 1. Vitamin B complex tablets. 2. Flomax 0.4 mg daily. 3. He takes docusate sodium 100 mg two times a day as needed. 4. Plavix 75 mg a day. 5. Coreg 12.5 mg b.i.d. 6. Advil 200 mg q.6 hours p.r.n. as needed. 7. Dexilant on a p.r.n. basis 60 mg b.i.d. 8. Ramipril 10 mg b.i.d. 9. Nitroglycerin as needed. 10. Vytorin 10/80 q.p.m. 11. Valium 5 mg as needed once or twice a day. 12. He also was started on Multaq 400 mg b.i.d., but he has stopped taking this medication. REVIEW OF SYSTEMS: A 12-point review of systems is unremarkable except what was noted in the history of present illness with the blood in the stools as well as the chest discomfort and the episode that happened yesterday. Otherwise, he does have some COPD and shortness of breath. He denied any significant neurological or peripheral vascular problems. PHYSICAL EXAMINATION: GENERAL: Reveals a well-developed, well-nourished gentleman, who is in no acute distress at this time. He is alert and oriented, very pleasant. is at bedside. VITAL SIGNS: Show a blood pressure of 145/91, heart rate is 70 and regular, and respiratory rate. He is afebrile. HEENT: Shows the head to be normocephalic and atraumatic. Carotid pulses are present. There were no bruits that I can determine, and there is no JVD. CHEST: Clear to auscultation without rales, rhonchi, or wheezing. CARDIOVASCULAR: Reveals a regular rate and rhythm at this time with normal S1 and S2. There was no S3 or S4 noted. There were no significant murmurs, heaves, thrills, bruits, or rubs. He has a very soft systolic murmur at the upper sternal border, otherwise is unremarkable. ABDOMEN: Soft, somewhat distended. Positive bowel sounds are present. Slightly tympanic, but no palpable masses are noted. EXTREMITIES: Show no clubbing, cyanosis, or edema. Pedal pulses are present. NEUROLOGIC: The patient appears to be intact. He has normal strength and tone. SKIN: Warm and dry. LABORATORY DATA: As noted, cardiac enzymes are negative. LDL was 62. Potassium was 3.6. Hemoglobin was 12.4, WBC was 6.6, and platelet count of 147,000. Blood sugar was more than 90. IMPRESSION AND PLAN: 1. Coronary artery disease with possible unstable angina. Given his past medical history and symptoms, I would suggest the patient undergo cardiac catheterization, especially to evaluate the right coronary artery, to determine whether or not he has had some in-stent restenoses. We will discuss this with Dr. Cantu and we will keep the patient n.p.o. for possible catheterization tomorrow. Given the fact that the patient continues to have blood in the stools, we may need to evaluate this also. I did explain that to the patient that should he have need to undergo intervention, he would need to have anticoagulation, which could cause the bleeding to become worse, unless just due to hemorrhoids. 2. Gastrointestinal bleed, which will need to be evaluated by Gastroenterology. At this time, it appears to be stable with a hemoglobin of 12.4. This is an ongoing problem for the patient. He does have a history of diverticulosis as well as hemorrhoids, but he has not had a recent colonoscopy. 3. Hypertension. His blood pressure is under relatively good control at this time. We will continue his medications. 4. Hyperlipidemia. His LDL level was 62 and this remains stable. We will continue to follow this. We will continue his present medications. 5. What appears to be intermittent atrial fibrillation by echocardiogram. He is in sinus rhythm at this time. We will leave this up to the discretion of Dr. Cantu unless he has further episodes of atrial fibrillation prior to being seen by Dr. Cantu tomorrow. I did explain to the patient about cardiac catheterization that the risks would involve bleeding, infection, possible myocardial infarction, CVA, renal insufficiency, allergic to contrast, reaction, and even possibility of . He understand and is agreeable to undergo cardiac catheterization. Job ID: [id number]
[2018-08-09] MEDS ORDERED: EZETIMIBE PO SCH (21:00)
[2018-08-09] MEDS ORDERED: Tamsulosin HCl 0.4 MG CAP PO SCH (21:00)
[2018-08-09] MEDS ORDERED: [UNRECOGNIZED DRUG - OTHER] PO SCH (21:00)
[2018-08-09] MEDS ORDERED: SIMVASTATIN PO SCH (21:00)
[2018-08-09 22:53] LABS: ALT (SGPT) 40 U/L (8-55); AST (SGOT) 51 U/L (5-34); Albumin 4.1 g/dL (3.4-4.8); Alkaline Phosphatase 72 U/L (40-150); Bilirubin, Direct 0.5 mg/dL (0.1-0.3); Bilirubin, Total 1.3 mg/dL (0.2-1.2); Protein, Total 6.3 g/dL (5.8-8.1)
[2018-08-10] MEDS: PROVENTIL INHALER 6.7 G (200 INHALATIONS) INH PRN (03:34)
[2018-08-10] MEDS: Carvedilol 6.25 MG TAB PO SCH (06:14)
[2018-08-10] MEDS: Clopidogrel Bisulfate 75 MG TAB PO SCH (06:14)
[2018-08-10] MEDS: Aspirin 325 MG TAB PO SCH (06:14)
[2018-08-10] MEDS: Ramipril 5 MG CAP PO SCH (06:15)
[2018-08-10] MEDS: Famotidine 20 MG TAB PO SCH (06:15)
[2018-08-10] MEDS ORDERED: Polyethylene Glycol 3350 17 GM Packet PO SCH (09:00)
[2018-08-10] MEDS ORDERED: Iopamidol 370 76% 50 ML VIAL FS ONE (09:28)
[2018-08-10] MEDS ORDERED: Iopamidol 370 76% 100 ML VIAL ONE (09:28)
[2018-08-10] MEDS ORDERED: Midazolam HCl 2 mg/2 ml Vial ONE (09:50)
[2018-08-10] MEDS ORDERED: Fentanyl 100 MCG/2 ML VIAL ONE (09:50)
[2018-08-10] MEDS ORDERED: Acetaminophen/Codeine 30-300mg Tablet PO PRN (10:24)
[2018-08-10] MEDS ORDERED: Nitroglycerin 0.4 MG TAB (25 Tab Bottle) SL PRN (10:24)
[2018-08-10] MEDS ORDERED: Sodium Chloride 0.9% 1,000 ML IV SCH (10:30)
[2018-08-10] MEDS ORDERED: Sodium Chloride 0.9% 200 ML IV PRN (11:00)
[2018-08-10 12:36] VITALS: TEMP 97.3
--- NOTE | 2018-08-10 14:15 | PDOC.PN ---
- Subjective Encounter Start Date: 08/10/18 Encounter Start Time: 11:30 Subjective: had cath done this am, no new occlusive disease -: no chest pain or sob now -: at bedside - Objective Resuscitation Status - Order Detail: 08/08/18 21:52 Resuscitation Status Routine Co-Sign Provider: Resuscitation Status: FULL: Full Resuscitation MAR Reviewed: Yes Vital Signs & Weight: Vital Signs (12 hours) Temp Pulse Resp BP BP Pulse Ox 08/10/18 12:20 97.3 F L 63 16 167/90 H 95 08/10/18 08:00 160/96 H 08/10/18 07:38 98.3 F 60 16 170/99 H 95 08/10/18 06:15 165/98 H 08/10/18 06:14 165/98 H 08/10/18 03:34 96 08/10/18 02:56 98.1 F 62 17 150/87 H 94 L Weight Weight 232 lb 1.6 oz I&O: 08/09/18 08/10/18 08/11/18 06:59 06:59 06:59 Intake Total 600 890 Output Total 850 Balance 600 40 Result Diagrams: 08/09/18 04:44 08/09/18 04:44 Phys Exam - Physical Examination HEENT: PERRLA, moist MMs Neck: no JVD, supple Respiratory: no wheezing, no rales Cardiovascular: RRR, no significant murmur Gastrointestinal: soft, non-tender, positive bowel sounds Musculoskeletal: no edema, pulses present Neurological: non-focal, moves all 4 limbs Psychiatric: normal affect, A&O x 3 Dx/Plan (1) Chest pain Code(s): R07.9 - CHEST PAIN, UNSPECIFIED Status: Resolved Qualifiers: Chest pain type: unspecified Qualified Code(s): R07.9 - Chest pain, unspecified (2) CAD (coronary artery disease) Code(s): I25.10 - ATHSCL HEART DISEASE OF [place] CORONARY ARTERY W/O ANG PCTRS Status: Chronic Qualifiers: Coronary Disease-Associated Artery/Lesion type: bypass graft [place] vs. transplanted heart: [place] heart Associated angina: with stable angina Qualified Code(s): I25.708 - Atherosclerosis of coronary artery bypass graft(s) , unspecified, with other forms of angina pectoris (3) HTN (hypertension) Code(s): I10 - ESSENTIAL (PRIMARY) HYPERTENSION Status: Chronic Qualifiers: Hypertension type: essential hypertension Qualified Code(s): I10 - Essential (primary) hypertension (4) Dyslipidemia Code(s): E78.5 - HYPERLIPIDEMIA, UNSPECIFIED Status: Chronic (5) Alcohol abuse Code(s): F10.10 - ALCOHOL ABUSE, UNCOMPLICATED Status: Chronic (6) BPH (benign prostatic hyperplasia) Code(s): N40.0 - BENIGN PROSTATIC HYPERPLASIA WITHOUT LOWER URINRY TRACT SYMP Status: Chronic Qualifiers: Lower urinary tract symptom presence: unspecified whether lower urinary tract symptoms present Qualified Code(s): N40.0 - Benign prostatic hyperplasia without lower urinary tract symptoms - Plan hemostable -: cath results noted -: has been cleared by cardio for discharge -: dc pt home * .
[2018-08-10 15:11] VITALS: BP 122/71
--- NOTE | 2018-08-11 13:09 | DIS ---
DATE OF ADMISSION: 08/08/2018 DATE OF DISCHARGE: 08/10/2018 DISCHARGE DISPOSITION: Home. PRIMARY DISCHARGE DIAGNOSES: 1. Chest pain, noncardiac. 2. Coronary artery disease with prior history of CABG and stents. 3. Hypertension. 4. Dyslipidemia. 5. Alcohol abuse. 6. Benign prostatic hypertrophy. PROCEDURES DONE DURING HOSPITALIZATION: The patient has had coronary catheterization done by Dr. Peoples on 08/10/2018, which showed stable coronary artery disease. He had occluded LAD, known occluded saphenous vein graft to RCA not imaged, stents to [place] RCA with minimal in-stent restenosis, patent SVG to diagonal, patent COWART to LAD, patent LM and [place] left circumflex, normal LV end-diastolic pressure and normal LV function were all noted on the cardiac catheterization. Hemoglobin and hematocrit are 12 and 36, platelet count 147, MCV is 103. Total bilirubin 1.3, AST 51, ALT 40, alkaline phosphatase 72. Cardiac enzymes were negative. Total cholesterol 142, triglycerides 54, LDL 62, HDL 69. DISCHARGE MEDICATIONS: 1. Plavix 75 mg p.o. daily. 2. Coreg 12.5 mg p.o. twice daily. 3. Flomax 0.4 mg p.o. at bedtime. 4. Ramipril 10 mg twice daily. 5. Nitroglycerin sublingual p.r.n. 6. Advair Diskus inhaler twice daily. 7. Zetia with simvastatin 10/80 mg one tablet p.o. at bedtime. 8. Valium 5 mg p.o. q.6 hourly p.r.n. 9. Dexilant 60 mg p.o. daily. 10. Albuterol inhaler q.6 hourly p.r.n. ALLERGIES: NO KNOWN DRUG ALLERGIES. INPATIENT CONSULT: Dr. Hewitt/[facility] for Cardiology. DISCHARGE PLAN: The patient is to follow up with primary care physician in [address] Cantu in 4 weeks. BRIEF COURSE DURING HOSPITALIZATION: The patient initially came to ER with complaints of chest pain. He has known history of coronary artery disease and prior CABG with stents as well. In view of this, the patient was placed under observation to rule out ACS. Three sets of troponin were negative. He has had consultation with Dr. Hewitt/[facility] for Cardiology. The patient had coronary angiogram done. The results have been described above. He remained chest pain-free during his hospitalization here. He is hemodynamically stable, ambulating, and eating well prior to discharge. 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 He was also counseled with regard to alcohol usage. Please see a [id number] documentation for the day of discharge on [employer]. Job ID: [id number] [id number]
== END 2018-08-10 15:18 | disposition home or self-care (01) ==
LOC: ERS 15:08 → 2SW 16:46
PROVIDERS: ADMIT Family Medicine; ATTEND Family Medicine
PROC: 4A023N7 Measurement of Cardiac Sampling and Pressure, Left Heart, Percutaneous Approach (ICD-10-PCS; principal; 2018-08-08)
PROC: B2101ZZ Fluoroscopy of Single Coronary Artery using Low Osmolar Contrast (ICD-10-PCS; 2018-08-08)
DX: I25.10 Atherosclerotic heart disease of native coronary artery without angina pectoris (principal); I08.3 Combined rheumatic disorders of mitral, aortic and tricuspid valves; I11.0 Hypertensive heart disease with heart failure; I50.9 Heart failure, unspecified; J45.909 Unspecified asthma, uncomplicated; N40.0 Benign prostatic hyperplasia without lower urinary tract symptoms; E78.5 Hyperlipidemia, unspecified; E78.00 Pure hypercholesterolemia, unspecified; J98.4 Other disorders of lung; Z87.891 Personal history of nicotine dependence; Z95.1 Presence of aortocoronary bypass graft; Z95.828 Presence of other vascular implants and grafts
CPT/HCPCS: 71045; 80048; 80053; 80061; 80076; 82550; 82962; 83690; 83880; 84484 ×2; 85025 ×2; 93005; 93458; 94640 ×2; 99285; C1769; G0378 ×2; 36415; 36416; 96360; 99152; J1644; J2250; J3010; Q9967

== ENCOUNTER 2021-12-31 12:17 | Outpatient (CLI) | payer MEDICARE, BC | END 2021-12-31 12:18 | disposition home or self-care (01) | LOC: RAD 12:17 | PROVIDERS: ATTEND Internal Medicine Critical Care Medicine | DX: R06.00 Dyspnea, unspecified (principal) | CPT/HCPCS: 71046 ==